=== PATIENT | male | born 1985 ===

== ENCOUNTER 2016-07-22 18:32 | Emergency (ER) | payer SELFPAY ==
[~2016-07-22 18:32] MED LIST: NO HOME MEDICATION XX
== END 2016-07-22 18:36 ==
LOC: EDMED 18:32
DX: S76.012A Strain of muscle, fascia and tendon of left hip, initial encounter (principal); F17.210 Nicotine dependence, cigarettes, uncomplicated; X50.1XXA Overexertion from prolonged static or awkward postures, initial encounter; Y93.66 Activity, soccer; Y99.8 Other external cause status